=== PATIENT | female | born 1960 | race Caucasian/White ===

== ENCOUNTER 2018-06-17 16:29 | Emergency (ER) | payer OTHER, SELFPAY ==
[2018-06-17 16:34] VITALS: BP 118/84; PULSE 95; RESP 18; TEMP 37.9; O2SAT 98; BMI 25.2
--- NOTE | 2018-06-17 17:19 | ED.ABDPAIN ---
HPI - Abdominal Pain <ALEX Robb - Last Filed: 06/17/18 21:45> General Chief Complaint: Abdominal Pain Stated Complaint: DIVERTICULITIS FLARE UP Time Seen by Provider: 06/17/18 17:18 Source: patient Mode of arrival: ambulatory Limitations: no limitations History of Present Illness HPI narrative: 57-year-old female with history of diverticulitis and nonsmoker here for complaint of pain to her lower abdomen over the past couple of days. She denies any trauma to the area. Positive p.o. intake. She denies fevers although she did have low-grade fever on arrival today. Last bowel movement was earlier today as states was normal for her as she normally has constipation. She denies any nausea vomiting. No flank pain. She she denies any stressors relievers of her pain. Related Data Home Medications Medication Instructions Recorded Confirmed amlodipine 2.5 mg PO DAILY 06/17/18 06/17/18 docusate sodium [Colace] 100 mg PO BEDTIME 06/17/18 06/17/18 lisinopril 20 mg PO DAILY 06/17/18 06/17/18 Previous Rx's Medication Instructions Recorded amoxicillin-pot clavulanate 1 tab PO TID #21 tab 06/17/18 [Augmentin] hydrocodone-acetaminophen [[place]] 1 tab PO Q4-6H PRN #15 tab 06/17/18 Allergies Allergy/AdvReac Type Severity Reaction Status Date / Time metronidazole [From Flagyl] AdvReac Vomiting Verified 06/17/18 16:39 Review of Systems <ALEX Robb - Last Filed: 06/17/18 21:45> Constitutional Denies chills, Denies fever(s), Denies lethargy and Denies weakness Eyes Denies change in vision, Denies eye discharge, Denies irritation and Denies loss of vision ENT Ears, Nose, Mouth, and Throat: Denies change in voice, Denies neck pain and Denies sore throat Cardiovascular Denies chest pain, Denies irregular heart rhythm, Denies lightheadedness, Denies palpitations, Denies dyspnea, Denies dyspnea on exertion and Denies orthopnea Respiratory Denies cough, Denies dyspnea, Denies dyspnea on exertion and Denies wheezing Gastrointestinal Gastrointestinal: Reports abdominal pain, Denies change in bowel habits, Denies diarrhea, Denies nausea and Denies vomiting Genitourinary Denies hematuria, Denies flank pain, Denies urinary incontinence and Denies urinary urgency Musculoskeletal Denies neck pain Integumentary/Breasts Denies pruritus, Denies erythema, Denies rash and Denies wounds Neurologic Denies confusion, Denies loss of vision and Denies weakness Psychiatric Denies anxiety, Denies confusion, Denies depression, Denies homicidal ideation and Denies suicidal ideation Endocrine Denies palpitations Allergic/Immunologic Denies wheezing Exam <ALEX Robb - Last Filed: 06/17/18 21:45> Initial Vital Signs Initial Vital Signs: Vital Signs Temperature 100.2 F H 06/17/18 16:34 Pulse Rate 95 H 06/17/18 16:34 Respiratory Rate 18 06/17/18 16:34 Blood Pressure 118/84 06/17/18 16:34 Pulse Oximetry 98 06/17/18 16:34 Const General: cooperative and well developed Nutritional Appearance: well nourished Orientation: alert, awake, oriented x3 and not confused HENOH Mouth: oral mucosae normal and moist mucous membranes Eyes Conjunctivae: conjunctivae normal Sclera: sclerae normal Pupils: PERRL EOM: EOM intact bilaterally Resp Effort & Inspection: normal respiratory effort, able to speak in complete sentences, no respiratory distress and no use of accessory muscles Auscultation: clear to auscultation bilaterally, no rales, no rhonchi and no wheezes Cardio Rate: regular rate Rhythm: regular rhythm Heart Sounds: no click, no gallops, no murmurs and no rubs GI Inspection: non-distended Palpation: soft, no hepatosplenomegaly, No guarding, No pulsatile mass and tender Auscultation: normal bowel sounds Other: Tenderness to bilateral lower abdomen General: No CVA tenderness Skin General: no rashes or lesions noted, No jaundice and No petechiae Neuro General: alert, oriented x3, gait normal and no focal motor deficits Speech: speech normal <Andreas Goff MD - Last Filed: 06/17/18 22:22> Initial Vital Signs Initial Vital Signs: Vital Signs Temperature 100.2 F H 06/17/18 16:34 Pulse Rate 95 H 06/17/18 16:34 Respiratory Rate 18 06/17/18 16:34 Blood Pressure 118/84 06/17/18 16:34 Pulse Oximetry 98 06/17/18 16:34 Course <ALEX Robb - Last Filed: 06/17/18 21:45> Orders Ordered: ED Orders 06/17/18 16:55 Complete Blood Count AUTO DIFF Stat Comprehensive Metabolic Panel Stat Lipase Stat 06/17/18 17:33 CT abdomen pelvis w con Stat Discontinued Medications Hydrocodone Bitart/Acetaminophen (Vicodin Prepack) 1 bottle MISC SEEINSTR ONE Stop: 06/17/18 19:48 Last Admin: 06/17/18 20:21 Dose: 1 bottle Amoxicillin/Clavulanate Potassium (Augmentin 875-125 Mg) 1 tab PO NOW ONE Stop: 06/17/18 19:48 Last Admin: 06/17/18 20:09 Dose: 1 tab Hydromorphone HCl (Dilaudid) 1 mg IV NOW ONE Stop: 06/17/18 17:33 Last Admin: 06/17/18 17:55 Dose: 1 mg Hydromorphone HCl (Dilaudid) 1 mg IV NOW ONE Stop: 06/17/18 20:11 Last Admin: 06/17/18 20:18 Dose: 1 mg Sodium Chloride (Normal Saline 0.9%) 500 mls @ 1,000 mls/hr IV BOLUS ONE Stop: 06/17/18 18:01 Last Infusion: 06/17/18 20:11 Dose: 0 mls/hr Admin: 06/17/18 17:53 Dose: 1,000 mls/hr Ondansetron HCl (Zofran) 4 mg IV NOW ONE Stop: 06/17/18 17:33 Last Admin: 06/17/18 17:53 Dose: 4 mg Vital Signs - 8 hr 06/17/18 16:34 06/17/18 17:52 06/17/18 20:08 Temperature 100.2 F H Pulse Rate 95 H 85 81 Respiratory Rate 18 15 14 Blood Pressure 118/84 Blood Pressure [Left Arm] 119/74 116/71 Pulse Oximetry 98 97 100 06/17/18 20:17 Temperature 98.8 F Pulse Rate Respiratory Rate Blood Pressure Blood Pressure [Left Arm] Pulse Oximetry <Andreas Goff MD - Last Filed: 06/17/18 22:22> Orders Ordered: ED Orders 06/17/18 16:55 Complete Blood Count AUTO DIFF Stat Comprehensive Metabolic Panel Stat Lipase Stat 06/17/18 17:33 CT abdomen pelvis w con Stat Discontinued Medications Hydrocodone Bitart/Acetaminophen (Vicodin Prepack) 1 bottle MISC SEEINSTR ONE Stop: 06/17/18 19:48 Last Admin: 06/17/18 20:21 Dose: 1 bottle Amoxicillin/Clavulanate Potassium (Augmentin 875-125 Mg) 1 tab PO NOW ONE Stop: 06/17/18 19:48 Last Admin: 06/17/18 20:09 Dose: 1 tab Hydromorphone HCl (Dilaudid) 1 mg IV NOW ONE Stop: 06/17/18 17:33 Last Admin: 06/17/18 17:55 Dose: 1 mg Hydromorphone HCl (Dilaudid) 1 mg IV NOW ONE Stop: 06/17/18 20:11 Last Admin: 06/17/18 20:18 Dose: 1 mg Sodium Chloride (Normal Saline 0.9%) 500 mls @ 1,000 mls/hr IV BOLUS ONE Stop: 06/17/18 18:01 Last Infusion: 06/17/18 20:11 Dose: 0 mls/hr Admin: 06/17/18 17:53 Dose: 1,000 mls/hr Ondansetron HCl (Zofran) 4 mg IV NOW ONE Stop: 06/17/18 17:33 Last Admin: 06/17/18 17:53 Dose: 4 mg Vital Signs - 8 hr 06/17/18 16:34 06/17/18 17:52 06/17/18 20:08 Temperature 100.2 F H Pulse Rate 95 H 85 81 Respiratory Rate 18 15 14 Blood Pressure 118/84 Blood Pressure [Left Arm] 119/74 116/71 Pulse Oximetry 98 97 100 06/17/18 20:17 Temperature 98.8 F Pulse Rate Respiratory Rate Blood Pressure Blood Pressure [Left Arm] Pulse Oximetry MDM - Abdominal Pain <ALEX Robb - Last Filed: 06/17/18 21:45> Lab Data Result diagrams: 06/17/18 16:55 06/17/18 16:55 Lab Results 06/17/18 06/17/18 Range/Units 16:55 16:55 WBC 11.0 (4.5-11.0) X10^3/uL RBC 4.03 (4.0-5.2) X10^6/uL Hgb 12.6 (12.0-16.0) g/dL Hct 36.6 (36-46) % MCV 90.8 (80-100) fL MCH 31.1 (26-34) PG MCHC 34.3 (30-36) % RDW 12.5 (11.6-14.8) % Plt Count 305 (150-400) X10^3/uL Neut % (Auto) 71.0 (50-75) % Lymph % (Auto) 20.8 L (25-40) % Stearns % (Auto) 7.2 (3-14) % Eos % (Auto) 0.6 L (2-4) % Baso % (Auto) 0.4 (0-2) % Neut # (Auto) 7800 H (4508-3074) /uL Sodium 142 (137-145) mmol/L Potassium 4.1 (3.4-5.1) mmol/L Chloride 105 (98-107) mmol/L Carbon Dioxide 27 (22-32) mmol/L BUN 12 (7-17) mg/dL Creatinine 0.70 (0.52-1.04) mg/dL Estimated GFR > 60.0 (>60) mL/min BUN/Creatinine Ratio 17.1 (6-22) Glucose 114 H (70-100) mg/dL Calcium 9.3 (8.4-10.2) mg/dL Total Bilirubin 0.4 (0.2-1.3) mg/dL AST 40 H (14-36) IU/L ALT 37 (9-52) IU/L Alkaline Phosphatase 81 (38-126) U/L Total Protein 7.5 (6.3-8.2) g/dL Albumin 4.2 (3.5-5.0) g/dL Globulin 3.3 (1.7-4.1) g/dL Albumin/Globulin Ratio 1.3 (1.0-2.8) Lipase 166 (23-300) U/L Point of care testing: Urine Dip Bedside Urine Glucose Negative Bedside Urine Bilirubin - Negative Bedside Urine Ketone - Negative Urine Specific [place] 1.005 Bedside Urine Occult Blood - Negative Bedside Urine pH 6.0 Bedside Urine Protein - Negative Bedside Urine Urobilinogen - Negative Bedside Urine Nitrite - Negative Bedside Urine Leukocytes - Negative Esterase Imaging Data CT scan - abdomen: Radiologist's impression: : CT ABDOMEN PELVIS W CON INDICATIONS: Pain bilateral lower abdomen history of diverticulitis TECHNIQUE: After the administration of intravenous contrast, 5 mm thick sections acquired from the diaphragm to the symphysis. 5 mm coronal and sagittal reformats were acquired. For radiation dose reduction, the following was used: automated exposure control, adjustment of mA and/or kV according to patient size. COMPARISON: None. FINDINGS: Image quality: Excellent. ABDOMEN: Lung bases: Mild bibasilar dependent atelectasis are seen. Heart size is normal. Bilateral breast implants are grossly intact. Solid organs: Liver is normal in size and enhancement. Mild hepatic steatosis is seen. Gallbladder is within normal limits. Biliary system is non dilated. Pancreas enhances normally. Spleen is normal in size and enhancement. No adrenal nodules. Kidneys demonstrate normal size and enhancement, without hydronephrosis. Peritoneum and bowel: There is significant wall thickening with narrowing of the lumen and adjacent mesenteric fat stranding involving the proximal to midportion of descending colon. Numerous descending and sigmoid colon diverticuli are seen. Finding is consistent with acute descending colon diverticulitis. No definite extraluminal air is noted to suggest perforation. No peritoneal abscess collection. No free fluid or free air. No other area of abnormal bowel wall thickening is seen. Appendix is visualized and is within normal limits. Nodes and vessels: No retroperitoneal or mesenteric adenopathy by size criteria. Aorta and inferior vena cava are normal in size. Miscellaneous: No ventral hernias. PELVIS: Genitourinary: Bladder wall thickness is normal. Miscellaneous: No inguinal hernias or adenopathy. Bones: No suspicious bony lesions. No vertebral body compression fractures. IMPRESSION: 1. Findings consistent with acute diverticulitis involving proximal to mid descending colon. No evidence of perforation or abscess collection. No free fluid or free air. 2. Normal appendix. Mild hepatic steatosis. Dictated by: Sanket Jefferson M.D. on 06/17/2018 at 18:56 Approved by: Sanket Jefferson M.D. on 06/17/2018 at 19:03 [facility] Narrative Medical decision making narrative: CT of the abdomen was obtained and shows descending colon diverticulitis with no signs of abscess no sign of rupture. Due to allergy to metronidazole she is placed on Augmentin. CBC and Chem panel were unremarkable. [place] is prescribed for pain. Follow up in the next few days for re-evaluation. Slowly advance diet as tolerated. For any worsening symptoms return to the emergency room. <Andreas Goff MD - Last Filed: 06/17/18 22:22> Lab Data Lab Results 06/17/18 06/17/18 Range/Units 16:55 16:55 WBC 11.0 (4.5-11.0) X10^3/uL RBC 4.03 (4.0-5.2) X10^6/uL Hgb 12.6 (12.0-16.0) g/dL Hct 36.6 (36-46) % MCV 90.8 (80-100) fL MCH 31.1 (26-34) PG MCHC 34.3 (30-36) % RDW 12.5 (11.6-14.8) % Plt Count 305 (150-400) X10^3/uL Neut % (Auto) 71.0 (50-75) % Lymph % (Auto) 20.8 L (25-40) % Stearns % (Auto) 7.2 (3-14) % Eos % (Auto) 0.6 L (2-4) % Baso % (Auto) 0.4 (0-2) % Neut # (Auto) 7800 H (4506-6775) /uL Sodium 142 (137-145) mmol/L Potassium 4.1 (3.4-5.1) mmol/L Chloride 105 (98-107) mmol/L Carbon Dioxide 27 (22-32) mmol/L BUN 12 (7-17) mg/dL Creatinine 0.70 (0.52-1.04) mg/dL Estimated GFR > 60.0 (>60) mL/min BUN/Creatinine Ratio 17.1 (6-22) Glucose 114 H (70-100) mg/dL Calcium 9.3 (8.4-10.2) mg/dL Total Bilirubin 0.4 (0.2-1.3) mg/dL AST 40 H (14-36) IU/L ALT 37 (9-52) IU/L Alkaline Phosphatase 81 (38-126) U/L Total Protein 7.5 (6.3-8.2) g/dL Albumin 4.2 (3.5-5.0) g/dL Globulin 3.3 (1.7-4.1) g/dL Albumin/Globulin Ratio 1.3 (1.0-2.8) Lipase 166 (23-300) U/L Point of care testing: Urine Dip Bedside Urine Glucose Negative Bedside Urine Bilirubin - Negative Bedside Urine Ketone - Negative Urine Specific [place] 1.005 Bedside Urine Occult Blood - Negative Bedside Urine pH 6.0 Bedside Urine Protein - Negative Bedside Urine Urobilinogen - Negative Bedside Urine Nitrite - Negative Bedside Urine Leukocytes - Negative Esterase Discharge Plan Departure Patient Disposition: Home Clinical Impression: Diverticulitis Discharge Date/Time: 06/17/18 20:30 Interventions: ED Discharge Assessment Last Done: 06/17/18 20:30 Instructions: Diverticulitis Activity Restrictions/Additional Instructions: Laboratory results today were unremarkable. CT of the abdomen shows descending colon diverticulitis without signs of abscess or rupture. You are placed on antibiotic called Augmentin use as directed. Follow up in the next couple days to be re-evaluated to ensure is improving. Use [place] as prescribed for pain no driving while on the [place]. Follow up with her primary care provider. Return emergency room for any worsening symptoms. Prescriptions: New hydrocodone-acetaminophen [[place]] 5-325 mg tablet 1 tab PO Q4-6H PRN (Reason: pain) Qty: 15 RF: 0 amoxicillin-pot clavulanate [Augmentin] 875-125 mg tablet 1 tab PO TID Qty: 21 RF: 0 No Action lisinopril 20 mg Tablet 20 mg PO DAILY RF: 0 amlodipine 2.5 mg Tablet 2.5 mg PO DAILY RF: 0 docusate sodium [Colace] 100 mg Capsule 100 mg PO BEDTIME RF: 0 Referrals: [facility] [Provider Group] <Andreas Goff MD - Last Filed: 06/17/18 22:22> Cosign ED Attending Ellen Attestation: I was present in the ER at the time of this patient's evaluation. I was available for verbal consultation or to see the patient directly if need be. I agree with the assessment and treatment plan.
--- NOTE | 2018-06-17 17:33 | DI.CT.S_ITS ---
PROCEDURE: CT ABDOMEN PELVIS W CON INDICATIONS: Pain bilateral lower abdomen history of diverticulitis TECHNIQUE: After the administration of intravenous contrast, 5 mm thick sections acquired from the diaphragm to the symphysis. 5 mm coronal and sagittal reformats were acquired. For radiation dose reduction, the following was used: automated exposure control, adjustment of mA and/or kV according to patient size. COMPARISON: None. FINDINGS: Image quality: Excellent. ABDOMEN: Lung bases: Mild bibasilar dependent atelectasis are seen. Heart size is normal. Bilateral breast implants are grossly intact. Solid organs: Liver is normal in size and enhancement. Mild hepatic steatosis is seen. Gallbladder is within normal limits. Biliary system is non dilated. Pancreas enhances normally. Spleen is normal in size and enhancement. No adrenal nodules. Kidneys demonstrate normal size and enhancement, without hydronephrosis. Peritoneum and bowel: There is significant wall thickening with narrowing of the lumen and adjacent mesenteric fat stranding involving the proximal to midportion of descending colon. Numerous descending and sigmoid colon diverticuli are seen. Finding is consistent with acute descending colon diverticulitis. No definite extraluminal air is noted to suggest perforation. No peritoneal abscess collection. No free fluid or free air. No other area of abnormal bowel wall thickening is seen. Appendix is visualized and is within normal limits. Nodes and vessels: No retroperitoneal or mesenteric adenopathy by size criteria. Aorta and inferior vena cava are normal in size. Miscellaneous: No ventral hernias. PELVIS: Genitourinary: Bladder wall thickness is normal. Miscellaneous: No inguinal hernias or adenopathy. Bones: No suspicious bony lesions. No vertebral body compression fractures. IMPRESSION: 1. Findings consistent with acute diverticulitis involving proximal to mid descending colon. No evidence of perforation or abscess collection. No free fluid or free air. 2. Normal appendix. Mild hepatic steatosis. Dictated by: Sanket Jefferson M.D. on 06/17/2018 at 18:56 Approved by: Sanket Jefferson M.D. on 06/17/2018 at 19:03
[2018-06-17 17:37] LABS: Add Manual Diff / Slide Review NO; Basophils Percent Auto 0.4 % (0-2); Eosinophils Percent Auto 0.6 % (2-4); Hematocrit 36.6 % (36-46); Hemoglobin 12.6 g/dL (12.0-16.0); Lymphocytes Percent Auto 20.8 % (25-40); Mean Corpuscular HGB Conc 34.3 % (30-36); Mean Corpuscular Hemoglobin 31.1 PG (26-34); Mean Corpuscular Volume 90.8 fL (80-100); Monocytes Percent Auto 7.2 % (3-14); Neutrophils Absolute Auto 7800 /uL (3000-5900); Platelet Count 305 X10^3/uL (150-400); Red Blood Cell Count 4.03 X10^6/uL (4.0-5.2); Red Cell Distribution Width 12.5 % (11.6-14.8)
[2018-06-17 17:43] LABS: Alanine Aminotransferase 37 IU/L (9-52); Albumin 4.2 g/dL (3.5-5.0); Albumin Globulin Ratio 1.3 (1.0-2.8); Alkaline Phosphatase 81 U/L (38-126); Aspartate Aminotransferase 40 IU/L (14-36); BUN Creatinine Ratio 17.1 (6-22); Bilirubin Total 0.4 mg/dL (0.2-1.3); Blood Urea Nitrogen 12 mg/dL (7-17); Calcium 9.3 mg/dL (8.4-10.2); Carbon Dioxide 27 mmol/L (22-32); Chloride 105 mmol/L (98-107); Estimated Glomerular Filt Rate > 60.0 mL/min (>60); Globulin 3.3 g/dL (1.7-4.1); Glucose 114 mg/dL (70-100); HEMOLYSIS < 15 (0-50); Lipase 166 U/L (23-300); Potassium 4.1 mmol/L (3.4-5.1); Sodium 142 mmol/L (137-145); Total Protein 7.5 g/dL (6.3-8.2)
[2018-06-17 17:52] VITALS: BP 119/74; PULSE 85; RESP 15; O2SAT 97
[2018-06-17] MEDS: ONDANSETRON 4 MG/2 ML INJ IV (17:53)
[2018-06-17] MEDS: SODIUM CHLORIDE 0.9% 500 ML 1000 ML IV (17:53)
[2018-06-17] MEDS: HYDROMORPHONE 1 MG INJ IV ×2 (17:55→20:18)
[2018-06-17 20:08] VITALS: BP 116/71; PULSE 81; RESP 14; O2SAT 100
[2018-06-17] MEDS: AMOXICILLIN/CLAV 875/125 MG 1 TAB PO (20:09)
[2018-06-17 20:17] VITALS: TEMP 37.1
[2018-06-17] MEDS: HYDROCODONE/ACET 5/325 PREPACK 1 BOTTLE MISC (20:21)
== END 2018-06-17 20:30 | disposition home or self-care (01) ==
PROVIDERS: Emergency Provider Nurse Practitioner Family
DX: K57.92 Diverticulitis of intestine, part unspecified, without perforation or abscess without bleeding (principal)
CPT/HCPCS: 36591; 74177; 80053; 81003; 83690; 85025; 96361; 96374; 96375; 96376; 99283; 99285; J1170; J2405; Q9967